=== PATIENT | female | born 1935 | race Caucasian/White ===

== ENCOUNTER 2018-03-06 11:22 | Inpatient (IN) | payer MEDICARE ==
[~2018-03-06] VITALS: Ht 167.6 cm; Wt 51.3 kg
[~2018-03-06 11:22] MED LIST: AMIODARONE HCL200 MG PO; ASPIRIN CHEW81 MG PO; CARBIDOPA-LEVO1 EAC9 PO; DIGOXIN125 MCG PO; ISOSORBIDE DINI30 MG PO; KLOR-CON M2020 MEQ PO; METOPROLOL TART50 MG PO; TORSEMIDE20 MG PO; WARFARIN SODIUM2 MG PO; ZOFRAN ODT4 MG PO
[2018-03-06] MEDS ORDERED: ALBUTEROL SULF 0.083% NEB SOLN 3 ML NEB NEB STA (12:06)
[2018-03-06] MEDS ORDERED: IPRATROPIUM BROMIDE 0.02% 2.5 ML NEB NEB STA (12:06)
[2018-03-06] MEDS ORDERED: ASPIRIN 81 MG CHEW TAB PO ONE ×2 (12:15→15:30)
--- NOTE | 2018-03-06 12:53 | Diagnostic Imaging Report ---
EXAMINATION: CHEST SINGLE (PORTABLE) INDICATION: Respiratory distress. COMPARISON: None FINDINGS: AP view TUBES and LINES: None. LUNGS: Lungs are well inflated. There are bibasilar atelectasis. Diffuse interstitial and alveolar opacities bilaterally. There is however more rounded appearance of the airspace opacities. Calcified granuloma in the left midlung. PLEURA: Small bilateral pleural effusions. HEART AND MEDIASTINUM: Cardiac size is moderately enlarged. There are atherosclerotic calcifications within the aorta. BONES AND SOFT TISSUES: No acute osseous lesion. Soft tissues are unremarkable. Surgical clips in the right upper arm, possibly related to vein harvesting. UPPER ABDOMEN: No free air under the diaphragm. There are cholecystectomy clips. IMPRESSION: Pulmonary edema with pleural effusion. However, there are rounded opacities in bilateral lungs that are more rounded than expected for pulmonary edema. Consider multifocal pneumonia or metastases. Signed by: Dr. Carlitos Galindo M.D. on 03/06/2018 12:50 PM
[2018-03-06] MEDS ORDERED: CIPROFLOXACIN 400 MG/D5W 200ML 200 ML IV ONE (13:30)
[2018-03-06] MEDS ORDERED: VANCOMYCIN 1GM/NS 250 ML 250 ML IV ONE (13:30)
--- NOTE | 2018-03-06 14:07 | Diagnostic Imaging Report ---
EXAM: Chest Ultrasound INDICATION: Respiratory distress, shortness of breath and history of pleural effusions \S\SOB and hx pleural effusions COMPARISON: AP chest 03/06/2018 TECHNIQUE: Transverse and longitudinal images of the chest were obtained. FINDINGS: Examination shows moderate bilateral pleural effusions with associated moderate compressive atelectasis of the lower lobes. IMPRESSION: 1. Moderate bilateral pleural effusions and associated moderate compressive atelectasis of the lower lobes. Signed by: Dr. Mino Jackson M.D. on 03/06/2018 2:04 PM
[2018-03-06 14:22] LABS: BASOPHILS # (AUTO) 0.1 (0.0-0.1); BASOPHILS % 0.8 % (0.0-1.0); EOSINOPHILS # (AUTO) 0.1 (0.0-0.4); EOSINOPHILS % 0.8 % (0.0-6.0); HEMATOCRIT 35.3 % (34.2-44.1); HEMOGLOBIN 11.3 g/dL (12.0-16.0); LYMPHOCYTES # (AUTO) 0.9 (1.0-3.2); LYMPHOCYTES % 11.5 % (18.0-39.1); MEAN CORPUSCULAR HEMOGLOBIN 31.2 pg (28-32); MEAN CORPUSCULAR VOLUME 97.5 fL (81-99); MONOCYTES # (AUTO) 0.9 (0.2-0.8); MONOCYTES % 11.2 % (4.4-11.3); NEUTROPHILS # (AUTO) 5.7 (2.1-6.9); NEUTROPHILS % 75.3 % (38.7-80.0); PLATELET COUNT 145 x10e3/uL (140-360); RED BLOOD COUNT 3.62 x10e6/uL (3.6-5.1); RED CELL DISTRIBUTION WIDTH 15.7 % (11.7-14.4)
[2018-03-06 14:31] LABS: CLARITY,URINE SL CLOUDY (CLEAR); COLOR,URINE YELLOW (YELLOW)
[2018-03-06 14:32] LABS: BILIRUBIN,URINE NEGATIVE (NEGATIVE); KETONES,URINE NEGATIVE (NEGATIVE); LEUKOCYTE ESTERASE ,URINE TRACE (NEGATIVE); NITRITE,URINE NEGATIVE (NEGATIVE); PROTEIN,URINE DIPSTICK 1+ (NEGATIVE); URINE UROBILINOGEN 0.2 mg/dL (0.2 - 1)
[2018-03-06 14:35] LABS: INR 1.11; PARTIAL THROMBOPLASTIN TIME 37.7 seconds (23.8-35.5); PROTHROMBIN TIME 15.3 seconds (11.9-14.5)
[2018-03-06 14:52] LABS: CREATINE KINASE MB 1.2 ng/mL (0-5.0)
[2018-03-06] MEDS ORDERED: FUROSEMIDE INJ 10 MG/ML 2 ML VIAL IV ONE (15:30)
[2018-03-06] MEDS ORDERED: ONDANSETRON HCL INJ 2 MG/ML VIAL IV PRN (15:30)
[2018-03-06] MEDS ORDERED: SODIUM CHLORIDE FLUSH 10 ML SYR INJ PRN (15:30)
[2018-03-06] MEDS ORDERED: DEXTROSE 50% SYRINGE 50 ML IV PRN (15:30)
[2018-03-06] MEDS: INSULIN REGULAR, HUMAN 100 UNIT/1 ML 3ML VIAL SQ SCH ×2 (16:30→21:00)
--- NOTE | 2018-03-06 17:37 | History and Physical ---
CHIEF COMPLAINT: Shortness of breath. HISTORY OF PRESENT ILLNESS: This is an 83-year-old woman with a history of pleural effusion and end-stage renal disease, who has had thoracenteses in the past, now developing worsening shortness of breath at [facility]. The patient had Lasix added a few days ago. She was allergic to Lasix. She had increased fluid removal during dialysis, but she continued to be short of breath. Her oxygen was increased from 2 liters [facility]. The patient was subsequently transferred to the hospital for management. Chest x-ray done here shows pulmonary edema with pleural effusion. There are also rounded opacities. Ultrasound performed of the chest showed moderate bilateral pleural effusions and associated moderate compressive atelectasis of the lower lobes. The patient was admitted for further evaluation and management. PAST MEDICAL HISTORY: End-stage renal disease on hemodialysis, acute respiratory failure, pulmonary edema, pleural effusions status post chest tube on more than 1 occasion, systolic congestive heart failure with left ventricular ejection fraction 35% to 40% in April 2017, bilateral pleural effusions, healthcare-associated pneumonia, atrial fibrillation, hyperlipidemia, hypertension, Parkinson disease, coronary artery disease status post coronary artery bypass grafting, DVT/PE, bright red blood per rectum/acute GI bleed, internal hemorrhoids, multiple colonic polyps in August 2016, patent foramen ovale/atrial septal defect on echocardiogram in August 2016, left sciatica, urinary tract infection, MRSA bacteremia, ASD shunt left to right, [id number] CO in April 2017, chronic angina. PAST SURGICAL HISTORY: Coronary artery bypass grafting, cholecystectomy, breast biopsy, bilateral chest tubes. ALLERGIES: PER ELECTRONIC MEDICAL RECORD. FAMILY HISTORY/SOCIAL HISTORY: No alcohol, illicits or cigarettes. The patient has a son. MEDICATIONS: Per electronic medical record. REVIEW OF SYSTEMS: Denies any dizziness or chest pain. Denies any fever, chills, sweats, nausea, vomiting, diarrhea. Denies any leg pain, back pain, vision changes. VITAL SIGNS: Have been reviewed. PHYSICAL EXAMINATION GENERAL: A tired-appearing woman resting in bed. HEENT: Anicteric. CARDIOVASCULAR: Normal S1 and S2. LUNGS: She has reduced breath sounds in bilateral bases of the lungs. She has fine crackles at the left lung base, but she definitely has reduced breath sounds at the bases. ABDOMEN: Soft, nontender, nondistended. EXTREMITIES: Trace edema. SKIN: Dry. PSYCHIATRIC: Flat affect. MUSCULOSKELETAL: Hemodialysis access. NEUROLOGIC: Alert, oriented times 3, moving all extremities. LABS: Reviewed. MEDICATIONS: Reviewed. ASSESSMENT AND PLAN: This is an 83-year-old woman. 1. Bilateral pleural effusions. 2. Pulmonary edema. 3. Acute exacerbation of systolic congestive heart failure, left ventricular ejection fraction 35% to 40% in April 2017, brain natriuretic peptide 3252 and pulmonary edema/pleural effusion. 4. Coronary artery disease with history of coronary artery bypass grafting. 5. Paroxysmal atrial fibrillation. 6. Hypertension. 7. Hyperlipidemia. 8. History of atrial septal defect with left to right shunt. 9. Chronic angina. 10. Normocytic anemia. 11. Asymptomatic urinary tract infection. 12. Parkinson disease. PLAN 1. Diurese the patient as above. The patient needs fluid removed by hemodialysis. Nephrology consultation. 2. Pulmonary consultation. Ultrasound only shows moderate effusion. We will continue with aggressive fluid removal during dialysis. Ultimately, the patient will require thoracentesis. Pleurodesis would be beneficial. Will await CT scan imaging of the chest. 3. Continue carbidopa and levodopa. 4. INR is subtherapeutic. Will continue Coumadin as it is unlikely the patient will require a thoracentesis at this time. 5. Continue blood pressure control. 6. Check digoxin level. 7. Check INR in the morning. 8. Continue amiodarone. 9. Will add Pepcid while the patient is on anticoagulation. 10. Disposition: Monitor closely. Follow I's and O's. Nephrology consultation. Pulmonary consultation. Job#: [id number]
[2018-03-06] MEDS: ONDANSETRON HCL 4 MG ORAL DISINTEGRATING TAB PO SCH (18:00)
[2018-03-06 20:00] VITALS: BP 107/53
--- NOTE | 2018-03-06 20:04 | Consultation ---
DATE OF CONSULTATION: March 06, 2018 HISTORY OF PRESENT ILLNESS: Ms. Yuli Valladares is known to me, 83-year-old female with history of recurrent pneumonia, pleural effusion. Last dialyzed yesterday, presented today with cough and shortness of breath. She is found to have multifocal pneumonia and currently admitted. White count is 7.58, hemoglobin 11.3. She is currently lying supine, on oxygen nasal cannula. Denies any nausea, vomiting, or shortness of breath. PHYSICAL EXAMINATION: VITAL SIGNS: Blood pressure is 130/60. Pulse rate 80. HEENT: Head and neck: Cornea clear. Oral mucosa dry. Neck veins flat. LUNGS: Bibasilar rales. HEART: S1, S2 audible. ABDOMEN: Otherwise soft, nontender. EXTREMITIES: Lower extremities, no edema. CURRENT MEDICATIONS: Patient received 1 dose of Cipro, 1 dose of vancomycin. She is on amiodarone 200 mg daily, albuterol and Atrovent nebulizers, aspirin 81 mg to chew. She is on carbidopa/levodopa once a day. She is on digoxin 0.125 mg daily, I am going to absolutely discontinue this medication. She received 1 dose of Lasix but she is anuric, metoprolol 50 mg daily, ondansetron p.r.n. Apparently, the MAR says she is on potassium chloride 20 mEq daily. I asked the patient and she knows very well that she potassium chloride, so I am going to stop that as well. She is on torsemide 20 mg daily, which I will stop. She is on Coumadin 2 mg p.o. daily. FAMILY HISTORY: Significant for hypertension. IMPRESSION AND PLAN: 1. Underlying congestive heart failure, pneumonia. B-type natriuretic peptide is elevated, but she is relatively asymptomatic. Plan on hemodialysis. Will consult infectious disease for pulmonary care. She has had recurrent pneumonias. 2. Pleural effusion, status post thoracentesis in the past. 3. History of Parkinson's, hypertension, anemia, chronic kidney disease, secondary hyperparathyroidism. Will resume phosphorus binders. Will obtain Mircera dose from dialysis unit and re-dose if needed. Dialysis nurse called. Please see orders. Thank you. Job#: [id number]
[2018-03-06 20:22] VITALS: BP 107/53
--- NOTE | 2018-03-06 20:38 | Consultation ---
DATE OF CONSULTATION: March 06, 2018 PULMONARY CONSULTATION REASON FOR CONSULTATION: Pleural effusion, shortness of breath. HISTORY OF PRESENT ILLNESS: Ms. Valladares is an 83-year-old female who has a history of an end-stage renal disease. She was recently admitted to [facility] with pneumonia. She has recurrent bilateral pleural effusion, previous one done at [facility] was exudative. She is complaining of shortness of breath. She reports that it started a few days ago and progressively got worse. Ultrasound was done in the emergency room which showed bilateral pleural effusion. REVIEW OF SYSTEMS GENERAL: Denies any fever or chills. HEAD: Denies any head trauma. ENT: Denies any earache. CVS: Denies any chest pain. RESPIRATORY: Shortness of breath. GI: Denies any nausea or vomiting. Rest of the review systems is negative except as in history of present illness. PAST MEDICAL HISTORY: End-stage renal disease on hemodialysis, pulmonary edema, history of pleural effusion, hypertension, hyperlipidemia, atrial fibrillation, coronary artery disease, history of bypass surgery. PAST SURGICAL HISTORY: CABG, cholecystectomy, breast biopsy. FAMILY AND SOCIAL HISTORY: She does not drink, does not smoke. PHYSICAL EXAMINATION VITAL SIGNS: Temperature 98.2, pulse of 84, blood pressure 116/58, respiratory rate of 18, O2 sat 100%. HEENT: Head atraumatic, normocephalic. NECK: Supple. CHEST: Markedly reduced air entry bilaterally on the bases. HEART: S1, S2 audible. ABDOMEN: Soft, nontender, nondistended. EXTREMITIES: No clubbing, cyanosis. Patient has pedal edema. NEUROLOGICAL: She is awake and alert. No focal neurologic deficits. LABS: White count of 57,000, hemoglobin 11.3, platelets 145,000. BNP 3252.7. Chest x-ray is showing pulmonary edema with pleural effusion. Chest ultrasound is showing effusion. ASSESSMENT: Ms. Valladares is an 83-year-old female with recurrent pleural effusions and has previous pneumonia. Currently has pleural effusion. CURRENT PROBLEMS 1. Possible pneumonia. 2. Pleural effusion. 3. Hypertension. 4. End-stage renal disease. 5. Diabetes. PLAN 1. I agree with starting the patient on IV antibiotics per ID recommendation. 2. I will request thoracentesis. Her INR is 1.1. She will need thoracentesis for bilateral pleural effusions. 3. End-stage renal disease, on hemodialysis per nephrology recommendation. 4. Oxygen as needed to keep the O2 sat more than or equal to 92%. 5. Chronic systolic heart failure. EF was 35% to 40% in April 2017. Likely reason for her recurrent pleural effusions is heart failure. Thank you for this consult. Job#: [id number] VIKTOR
[2018-03-06 21:57] LABS: CREATINE KINASE MB 1.1 ng/mL (0-5.0)
[2018-03-06] MEDS: BENZONATATE 100 MG CAP PO PRN (23:06)
[2018-03-06] MEDS: ALPRAZOLAM 0.25 MG TAB PO PRN (23:06)
[2018-03-07] VITALS (8 sets, daily range): BP systolic 114–139; BP diastolic 51–63
[2018-03-07] MEDS: ONDANSETRON HCL 4 MG ORAL DISINTEGRATING TAB PO SCH ×4 (05:43→18:00)
[2018-03-07 05:53] LABS: BASOPHILS # (AUTO) 0.1 (0.0-0.1); BASOPHILS % 0.7 % (0.0-1.0); EOSINOPHILS # (AUTO) 0.1 (0.0-0.4); EOSINOPHILS % 1.9 % (0.0-6.0); LYMPHOCYTES # (AUTO) 1.4 (1.0-3.2); LYMPHOCYTES % 20.7 % (18.0-39.1); MEAN CORPUSCULAR HEMOGLOBIN 31.3 pg (28-32); MEAN CORPUSCULAR HGB CONC 32.4 g/dL (31-35); MEAN CORPUSCULAR VOLUME 96.9 fL (81-99); MONOCYTES # (AUTO) 0.9 (0.2-0.8); MONOCYTES % 13.7 % (4.4-11.3); NEUTROPHILS # (AUTO) 4.3 (2.1-6.9); NEUTROPHILS % 62.7 % (38.7-80.0); PLATELET COUNT 154 x10e3/uL (140-360); RED BLOOD COUNT 3.51 x10e6/uL (3.6-5.1); RED CELL DISTRIBUTION WIDTH 15.4 % (11.7-14.4)
[2018-03-07 06:10] LABS: INR 0.96; PROTHROMBIN TIME 13.7 seconds (11.9-14.5)
[2018-03-07 06:15] LABS: ALANINE AMINOTRANSFERASE < 6 IU/L (0-55); ALBUMIN/GLOBULIN RATIO 0.9 (0.8-2.0); ALKALINE PHOSPHATASE 89 IU/L (40-150); ANION GAP 17.1 mmol/L (8-16); BLOOD UREA NITROGEN 47 mg/dL (7-26); BUN/CREATININE RATIO 14 (6-25); CALCIUM 9.9 mg/dL (8.4-10.2); CARBON DIOXIDE 27 mmol/L (22-29); CHLORIDE 100 mmol/L (98-107); CREATINE KINASE 27 IU/L (29-168); CREATININE, SERUM 3.44 mg/dL (0.57-1.11); EST GLOMERULAR FILTRATION RATE 13 ML/MIN (60-); GLUCOSE 98 mg/dL (74-118); POTASSIUM 4.1 mmol/L (3.5-5.1); SODIUM 140 mmol/L (136-145)
--- NOTE | 2018-03-07 06:37 | Diagnostic Imaging Report ---
EXAM: CHEST SINGLE (PORTABLE), AP 1 view INDICATION: Respiratory distress COMPARISON: AP view of the chest March 06, 2018 FINDINGS: LINES/TUBES: None LUNGS: Bilateral pulmonary edema and bibasilar atelectasis versus consolidations. Rounded opacities seen on prior x-ray are less appreciated on today's exam. PLEURA: Small to moderate bilateral pleural effusions. HEART AND MEDIASTINUM: Stable appearance. BONES AND SOFT TISSUES: No acute findings. IMPRESSION: Findings suggest fluid overload/congestive heart failure. Superimposed pneumonia cannot be excluded. Signed by: Dr. Leydi Corona M.D. on 03/07/2018 6:34 AM
[2018-03-07] MEDS: INSULIN REGULAR, HUMAN 100 UNIT/1 ML 3ML VIAL SQ SCH ×4 (07:30→21:00)
[2018-03-07] MEDS: ISOSORBIDE DINITRATE 20 MG TAB PO SCH (09:00)
[2018-03-07] MEDS ORDERED: TORSEMIDE 10 MG TAB PO SCH (09:00)
[2018-03-07] MEDS ORDERED: CARBIDOPA PO SCH (09:00)
[2018-03-07] MEDS: METOPROLOL TARTRATE 50 MG TAB PO SCH (09:00)
[2018-03-07] MEDS ORDERED: NON-FORMULARY MEDICATION (Torsemide 20 MG) PO SCH (09:00)
[2018-03-07] MEDS ORDERED: POTASSIUM CHLORIDE 20 MEQ TAB CR PO SCH (09:00)
[2018-03-07] MEDS ORDERED: LEVODOPA PO SCH (09:00)
[2018-03-07] MEDS ORDERED: NON-FORMULARY MEDICATION (Isosorbide Dinitrate 30 MG) PO SCH (09:00)
[2018-03-07] MEDS ORDERED: DIGOXIN 0.125 MG TAB PO SCH (09:00)
[2018-03-07] MEDS: AMIODARONE HCL 200 MG TAB PO SCH (09:00)
[2018-03-07] MEDS ORDERED: SODIUM CHLORIDE 0.9% 1000ML 2,000 ML IV PRN (10:00)
[2018-03-07] MEDS ORDERED: VANCOMYCIN 750MG/NS 150ML IVPB 150 ML IV SCH (12:30)
[2018-03-07] MEDS: ALBUTEROL/IPRATROPIUM 3 ML NEB NEB SCH ×2 (13:00→19:18)
--- NOTE | 2018-03-07 13:30 | Consultation ---
DATE OF CONSULTATION: March 06, 2018 INFECTIOUS DISEASE CONSULTATION REASON FOR CONSULTATION: Pneumonia. Thank you so much for asking me to see this patient. The patient was seen on March 06. This is dictated the next day. Please refer to the notes in the chart. HISTORY OF PRESENT ILLNESS: Ms. Yuli Valladares is known to me from before, an 83-year-old white female with history of recurrent pneumonia, history of pleural effusion, history of end-stage renal disease on hemodialysis. The patient comes in with fever and chills. The patient apparently thought to be sick before she came here for a few days. She received Cipro and 1 dose of vancomycin as an outpatient but was without any improvement. The patient came to the hospital because she was short of breath. Patient is being admitted. I did see the patient in the emergency room. The patient has history of end-stage renal disease, had a thoracocentesis in the past. She was in [place] [facility], comes in with shortness of breath and cough. The patient apparently got some Lasix a few days ago, and Cipro and vancomycin were also given a few days ago without any improvement. PAST MEDICAL HISTORY: This patient has the following medical problems. End-stage renal disease on hemodialysis, pulmonary edema before, pleural effusion status post chest tube several occasions, congestive heart failure systolic, ejection fraction of 35% to 40% in April 2017, bilateral pleural effusion, healthcare-associated pneumonia, atrial fibrillation, hyperlipidemia, hypertension, Parkinson disease, coronary artery disease status post CABG, DVT, PE before, bright red blood in the rectum, GI bleed before, internal hemorrhoid, multiple colonic polyps in August 2016, history of foramen ovale/atrial septal defect on echocardiogram in August 2016, left sciatica, UTI before, MRSA bacteremia, ASD. She also had a shunt left to right and [id number] myocardial infarction in 2017, angina. Status post CABG, status post cholecystectomy, bilateral chest tube before, and breast biopsy. PAST SURGICAL HISTORY: As above. ALLERGIES: MORPHINE, FUROSEMIDE, CEPHALEXIN, PENICILLIN. SOCIAL HISTORY: There is no smoking, drug abuse, alcohol abuse. FAMILY HISTORY: Hypertension. REVIEW OF SYSTEMS HEENT: There is no headache or visual changes, hearing changes. GI: There is no nausea or vomiting or diarrhea. CARDIAC: There is no arrhythmia. NEURO: No seizure activity. SKIN: There is no other rash. JOINTS: There is no erythema. OTHER REVIEW OF SYSTEMS: Unremarkable. PHYSICAL EXAMINATION GENERAL: She is alert, oriented, does not seem to be in acute distress, a little bit short of breath. VITAL SIGNS: Stable. Afebrile at the present time. Temperature of 96.5, heart rate of 75, respiration 18. HEENT: She does not appear icteric. Normocephalic. NECK: Supple. CHEST: A few crackles bilaterally. HEART: S1 and S2. No S3 or S4, no murmur. ABDOMEN: Soft. Bowel sounds present. No tenderness. EXTREMITIES: No edema. CHEST X-RAY: Showed bilateral infiltrate. IMPRESSION: Cough, shortness of breath, probably fluid overload with superimposed pneumonia. Concerned about healthcare-associated pneumonia. Will put her on vancomycin and cefepime. Agree with diuresis. Agree with maximizing her cardiac and fluid status. Patient is up to date on her vaccinations, pneumonia and flu according to her. Will follow with you. Thank you for asking me to see this patient. Job#: [id number] CRYSTAL
[2018-03-07] MEDS ORDERED: WARFARIN SOD 2 MG TAB PO SCH (17:00)
[2018-03-07] MEDS: CARBIDOPA/LEVODOPA 10/100 TAB PO SCH (17:20)
[2018-03-07] MEDS: ALPRAZOLAM 0.25 MG TAB PO PRN (22:06)
[2018-03-08] VITALS (7 sets, daily range): BP systolic 106–132; BP diastolic 52–60
[2018-03-08] MEDS: ALBUTEROL/IPRATROPIUM 3 ML NEB NEB SCH ×4 (01:20→19:25)
[2018-03-08] MEDS: ONDANSETRON HCL 4 MG ORAL DISINTEGRATING TAB PO SCH ×4 (06:00→19:18)
[2018-03-08] MEDS: INSULIN REGULAR, HUMAN 100 UNIT/1 ML 3ML VIAL SQ SCH ×4 (07:30→20:13)
[2018-03-08] MEDS: METOPROLOL TARTRATE 50 MG TAB PO SCH (09:00)
[2018-03-08] MEDS: CARBIDOPA/LEVODOPA 10/100 TAB PO SCH (09:00)
[2018-03-08] MEDS: ISOSORBIDE DINITRATE 20 MG TAB PO SCH (09:00)
[2018-03-08] MEDS: CEFEPIME HCL 1 GM VIAL IV SCH (09:18)
[2018-03-08] MEDS: AMIODARONE HCL 200 MG TAB PO SCH (13:00)
--- NOTE | 2018-03-08 14:19 | Diagnostic Imaging Report ---
PROCEDURE: ULTRASOUND GUIDED THORACENTESIS COMPARISON: [facility], DX, CHEST SINGLE (PORTABLE), 03/07/2018, 6:10. INDICATIONS: Bilateral pleural effusions FINDINGS: After informed consent was obtained, the patient was placed in the sitting position and preliminary ultrasound of the posterior chest identified a safe route into the right pleural effusion. The overlying skin was prepped and draped in usual sterile fashion. Lidocaine 1% was used for local anesthesia. Under ultrasound guidance, a 5 Lao centesis needle was advanced into the pleural fluid and 900 cc were aspirated. The patient tolerated the procedure well and there were no immediate post-procedural complications. A post-thoracentesis chest radiograph will be obtained. CONCLUSION: Ultrasound-guided right thoracentesis with removal of 900 cc of blood-tinged effusion. Jovani Varma D.O. Dictated by: Jovani Varma D.O. on 03/08/2018 at 14:26 Electronically approved by: Jovani Varma D.O. on 03/08/2018 at 14:26
--- NOTE | 2018-03-08 14:32 | Diagnostic Imaging Report ---
EXAM: CHEST XRAY POST PROCEDURE, PA and lateral DATE: 03/08/2018 1:55 PM Time stamp on exam: 1:54 PM INDICATION: Post thoracentesis chest x-ray COMPARISON: 03/07/2018 FINDINGS: LINES/TUBES: Sternotomy wire sutures. LUNGS: Mild pulmonary vascular congestion. Bibasilar atelectasis. PLEURA: Tiny right apical pneumothorax. Size of the right pleural effusion is diminished compared to the recent study. Left pleural effusion again noted. HEART AND MEDIASTINUM: Heart is enlarged. BONES AND SOFT TISSUES: No acute findings. IMPRESSION: Tiny right apical pneumothorax post thoracentesis. Signed by: Dr. Jovani Varma DO on 03/08/2018 2:29 PM
[2018-03-08 15:10] LABS: BODY FLUID COLOR STRAW; BODY FLUID TYPE PLEURAL
[2018-03-08 15:11] LABS: BODY FLUID APPEARANCE CLOUDY
[2018-03-08 15:49] LABS: RBC,BODY FLUID 539 cells/uL; WBC,BODY FLUID 91 cells/uL
[2018-03-08 15:55] LABS: LYMPHOCYTES,BODY FLUID 60 %; MONO/MACROPHG,BODY FLUID 19 %; OTHER CELLS,BODY FLUID 21 %
[2018-03-08] MEDS: ACETAMINOPHEN 325 MG TAB PO PRN ×2 (16:00→20:06)
[2018-03-08] MEDS: PRAVASTATIN 20 MG TAB PO SCH (20:06)
[2018-03-08] MEDS: ALPRAZOLAM 0.25 MG TAB PO PRN (20:06)
[2018-03-08] MEDS: DOCUSATE SODIUM 100 MG CAP PO SCH (20:06)
[2018-03-08] MEDS: BENZONATATE 100 MG CAP PO PRN (20:14)
[2018-03-09] VITALS (7 sets, daily range): BP systolic 94–127; BP diastolic 51–62
[2018-03-09] MEDS: ALBUTEROL/IPRATROPIUM 3 ML NEB NEB SCH ×4 (01:05→19:30)
[2018-03-09] MEDS: ONDANSETRON HCL 4 MG ORAL DISINTEGRATING TAB PO SCH ×5 (05:04→23:29)
[2018-03-09] MEDS: INSULIN REGULAR, HUMAN 100 UNIT/1 ML 3ML VIAL SQ SCH ×4 (07:30→21:00)
[2018-03-09] MEDS: ISOSORBIDE DINITRATE 20 MG TAB PO SCH (08:24)
[2018-03-09] MEDS: DOCUSATE SODIUM 100 MG CAP PO SCH ×2 (08:24→20:19)
[2018-03-09] MEDS: PANTOPRAZOLE SOD 40 MG TABEC PO SCH (08:24)
[2018-03-09] MEDS: SEVELAMER CARBONATE 800 MG TAB PO SCH ×3 (08:24→16:49)
[2018-03-09] MEDS: AMIODARONE HCL 200 MG TAB PO SCH (08:24)
[2018-03-09] MEDS: LORATADINE 10 MG TAB PO SCH (08:24)
[2018-03-09] MEDS: SENNOSIDES 8.6 MG TAB PO SCH (08:24)
[2018-03-09] MEDS: CARBIDOPA/LEVODOPA 10/100 TAB PO SCH (08:24)
[2018-03-09] MEDS: CEFEPIME HCL 1 GM VIAL IV SCH (08:24)
[2018-03-09] MEDS: METOPROLOL TARTRATE 50 MG TAB PO SCH (09:00)
[2018-03-09] MEDS: FLUTICASONE PROPIONATE NASAL SPRAY NS SCH (09:00)
--- NOTE | 2018-03-09 09:35 | Diagnostic Imaging Report ---
EXAM: XR CHEST 1 VIEW DATE: 03/09/2018 8:56 AM INDICATION: Effusion COMPARISON: 03/08/2018, with no report available. FINDINGS: Lines and Tubes: None Heart and Mediastinum: Heart mildly prominent. Sternotomy wires noted. Lungs and Pleura: Interstitial prominence, mild scattered airspace opacities, and small bilateral pleural effusions. Nodular density left midlung. Questionable previous tiny right apical pneumothorax not distinctly seen, possibly due to differences in semiupright positioning. Bones and Soft Tissues: Numerous clips overlie right arm. IMPRESSION: 1. Volume overload with small bilateral pleural effusions. Superimposed infectious process possible. 2. Nodular density left midlung likely infectious. Close radiographic follow-up recommended. Signed by: Dr. Moshe Hayes MD on 03/09/2018 9:32 AM
[2018-03-09] MEDS: ACETAMINOPHEN 325 MG TAB PO PRN (11:27)
[2018-03-09] MEDS: PRAVASTATIN 20 MG TAB PO SCH (20:19)
[2018-03-09] MEDS: ALPRAZOLAM 0.25 MG TAB PO PRN (20:25)
[2018-03-10] VITALS (7 sets, daily range): BP systolic 113–136; BP diastolic 55–63
--- NOTE | 2018-03-10 00:18 | Progress Note ---
DATE: March 07, 2018 TIME: 7:15 a.m. OVERNIGHT: No events. REVIEW OF SYSTEMS: Denies any dizziness or chest pain. Denies any fever, chills, sweats, nausea, vomiting, diarrhea, leg pain, back pain, or headache. OBJECTIVE VITAL SIGNS: Reviewed. GENERAL: Tired-appearing woman, resting in bed. HEENT: Anicteric. CARDIOVASCULAR: Normal S1 and S2. LUNGS: She has reduced breath sounds in bilateral bases. She has fine crackles at the base, right more than left. She has reduced breath sounds on the right lung more than left. ABDOMEN: Soft and nontender. EXTREMITIES: Trace edema. SKIN: Dry. PSYCHIATRIC: Flat affect. NEUROLOGIC: Alert and appropriate. MUSCULOSKELETAL: Hemodialysis access. LABS: Reviewed. MEDICATIONS: Reviewed. ASSESSMENT AND PLAN: This is an 83-year-old woman with: 1. Bilateral pleural effusions. 2. Pulmonary edema. 3. Acute exacerbation of systolic congestive heart failure, left ventricular ejection fraction 35%-40%. 4. Coronary artery disease with history of bypass. 5. Paroxysmal atrial fibrillation. 6. Hypertension. 7. Hyperlipidemia. 8. History of atrial septal defect and left to right shunt. 9. Chronic angina. 10. Normocytic anemia. 11. Asymptomatic urinary tract infection. 12. Parkinson's disease. PLAN 1. Will need thoracentesis. 2. Continue removal of fluid by dialysis. 3. Pulmonary has been consulted. 4. Digoxin level is normal. 5. Follow up closely. Job#: [id number] MAICOL
--- NOTE | 2018-03-10 00:19 | Progress Note ---
DATE: March 09, 2018 TIME: 12:45 p.m. OVERNIGHT: Patient had thoracentesis with 900 mL removed from the right lung. REVIEW OF SYSTEMS: Denies any dizziness or chest pain. Denies any fever, chills, sweats, nausea, vomiting, diarrhea, headache, leg pain, or back pain. OBJECTIVE VITAL SIGNS: Reviewed. GENERAL: Tired-appearing woman, resting in bed. HEENT: Anicteric. CARDIOVASCULAR: Normal S1 and S2. LUNGS: She has reduced breath sounds, more on the right compared to the left. She has reduced breath sounds. ABDOMEN: Soft and nontender. EXTREMITIES: Trace edema. SKIN: Dry. PSYCHIATRIC: Flat affect. MUSCULOSKELETAL: Hemodialysis access. LABS: Reviewed. MEDICATIONS: Reviewed. ASSESSMENT AND PLAN: This is an 83-year-old woman with: 1. Bilateral pleural effusions/pulmonary edema. 2. Acute exacerbation of systolic congestive heart failure, left ventricular ejection fraction 35%-40%. 3. Coronary artery disease with history of bypass. 4. Paroxysmal atrial fibrillation. 5. Hypertension. 6. Hyperlipidemia. 7. Chronic angina. 8. Normocytic anemia. 9. Parkinson's disease. 10. Asymptomatic urinary tract infection. 11. Small right pneumothorax post thoracentesis. PLAN 1. Continue fluid removal by dialysis. 2. Patient is status post thoracentesis with 900 mL removed from the right lung. 3. Continue medication regimen. 4. Limit salt and limit fluids. 5. Continue physical therapy. 6. Continue to observe followed by imaging tomorrow. 7. Discharge planning back to [facility] facility soon. Job#: [id number] MAICOL
--- NOTE | 2018-03-10 00:28 | Progress Note ---
DATE: March 08, 2018 TIME: 8:15 a.m. OVERNIGHT: No events reviewed. REVIEW OF SYSTEMS: Denies any dizziness, chest pain, fever, chills, nausea, vomiting, or diarrhea. She does have shortness of breath. OBJECTIVE VITAL SIGNS: Reviewed. GENERAL: Tired-appearing woman, resting in bed. HEENT: Anicteric. CARDIOVASCULAR: Normal S1, S2. LUNGS: She has reduced breath sounds, right worse than left base. ABDOMEN: Soft, nontender. EXTREMITIES: She has trace edema. SKIN: Dry. PSYCHIATRIC: Flat affect. NEUROLOGICAL: Alert and oriented times 3. MUSCULOSKELETAL: She has hemodialysis access. LABS: Reviewed. MEDICATIONS: Reviewed. ASSESSMENT: This is an 83-year-old woman with; 1. Bilateral pleural effusion. 2. Pulmonary edema. 3. Acute exacerbation of systolic congestive heart failure, left ventricular ejection fraction 35% to 40%. 4. Coronary artery disease with history of bypass. 5. Paroxysmal atrial fibrillation. 6. Hypertension. 7. Hyperlipidemia. 8. Chronic angina. 9. Asymptomatic urinary tract infection. 10. Parkinson's disease. PLAN 1. Pleural thoracentesis. 2. Continue blood pressure control. 3. The patient is currently comfortable. 4. Continue follow INR. 5. Hold Xarelto. Job#: [id number] RUBY
[2018-03-10] MEDS: ALBUTEROL/IPRATROPIUM 3 ML NEB NEB SCH ×4 (02:10→19:36)
[2018-03-10] MEDS: ONDANSETRON HCL 4 MG ORAL DISINTEGRATING TAB PO SCH ×3 (05:41→16:51)
[2018-03-10] MEDS: INSULIN REGULAR, HUMAN 100 UNIT/1 ML 3ML VIAL SQ SCH ×4 (07:30→20:13)
[2018-03-10] MEDS: PANTOPRAZOLE SOD 40 MG TABEC PO SCH (08:40)
[2018-03-10] MEDS: DOCUSATE SODIUM 100 MG CAP PO SCH ×2 (08:41→20:11)
[2018-03-10] MEDS: ISOSORBIDE DINITRATE 20 MG TAB PO SCH (08:41)
[2018-03-10] MEDS: AMIODARONE HCL 200 MG TAB PO SCH (08:41)
[2018-03-10] MEDS: SEVELAMER CARBONATE 800 MG TAB PO SCH ×3 (08:41→16:51)
[2018-03-10] MEDS: LORATADINE 10 MG TAB PO SCH (08:41)
[2018-03-10] MEDS: CEFEPIME HCL 1 GM VIAL IV SCH (08:41)
[2018-03-10] MEDS: FLUTICASONE PROPIONATE NASAL SPRAY NS SCH (08:41)
[2018-03-10] MEDS: METOPROLOL TARTRATE 50 MG TAB PO SCH (08:42)
[2018-03-10] MEDS: SENNOSIDES 8.6 MG TAB PO SCH (08:42)
[2018-03-10] MEDS: CARBIDOPA/LEVODOPA 10/100 TAB PO SCH (08:42)
--- NOTE | 2018-03-10 20:10 | Progress Note ---
DATE: March 10, 2018 TIME: 1750 OVERNIGHT: No acute events. REVIEW OF SYSTEMS: Patient denies shortness of breath, chest pain, or dizziness. Additionally, denies any fever, chills, sweats, nausea, vomiting, diarrhea, headache, leg pain, or back pain. Reports intermittent nonproductive, nonpainful cough. OBJECTIVE VITAL SIGNS: T 97.3, P 75, R 20, BP 113/55, and SpO2 of 100% on 3 liters NC. GENERAL APPEARANCE: This is very frail elderly woman, resting in bed. HEENT: Normocephalic. Poor dentition with moist oral mucosa intact. Nares patent. NECK: No JVD with midline trachea. CV: S1 and S2 auscultated. Distant heart tones. No extra cardiac sounds appreciated. LUNGS: Diminished in all elizondo. Excursion limited during this exam. ABDOMEN: Soft, nontender, and nondistended. EXTREMITIES: Trace PT edema bilaterally. SKIN: Dry. PSYCHIATRIC: Flat affect. NEUROLOGICAL: A and O x3. MUSCULOSKELETAL: HD access noted. LABS: POC is reviewed. MEDICATIONS: Renvela 800 mg p.o. t.i.d. with meals, q.6 hours DuoNebs, p.o. daily Senokot, Sinemet 10/100 one p.o. daily, Lopressor 50 p.o. daily, Flonase q.a.m., q.12 Colace, daily Claritin, daily 1 g cefepime, daily Isordil 30 mg, amiodarone daily 200 mg, a.c. breakfast 40 mg Protonix, p.r.n. Xanax, p.r.n. Tylenol, b.i.d. p.r.n. Tessalon Perles, sliding scale regular insulin and scheduled q.6 hour 8 mg Zofran, 3 times a week vancomycin after dialysis, and HD medications. ASSESSMENT AND PLAN: This is an 83-year-old woman with 1. Bilateral pleural effusions and pulmonary edema. Pulmonology following. No review indicates pleurodesis discussed with the patient as well this day. 2. Acute exacerbation of systolic congestive heart failure, left ventricular ejection fraction 35% to 40%. Limit fluids and HD dialysis. 3. Coronary artery disease with bypass. 4. Proximal atrial fibrillation. Continue amiodarone. 5. Hypertension. Continue to monitor. 6. Hyperlipidemia. Follow values in a.m. 7. Chronic angina. 8. Normocytic anemia. Follow counts. 9. Parkinson's disease, Sinemet. 10. Asymptomatic urinary tract infection. AV access above. 11. Small right pneumothorax post thoracentesis on March 08. 12. Prophylaxis. As above. DISPOSITION: Continue HD, meds as indicated, sodium and fluid restriction, physical therapy. Possible pulmonary intervention and initiate discharge planning back to [facility]. Dictated by: Nafisa Xiao NP Job#: [id number] HAYLEY
[2018-03-10] MEDS: PRAVASTATIN 20 MG TAB PO SCH (20:11)
[2018-03-10] MEDS: ALPRAZOLAM 0.25 MG TAB PO PRN (20:12)
[2018-03-10] MEDS: BENZONATATE 100 MG CAP PO PRN (20:12)
[2018-03-11] VITALS (8 sets, daily range): BP systolic 98–140; BP diastolic 50–86
[2018-03-11] MEDS: ALBUTEROL/IPRATROPIUM 3 ML NEB NEB SCH ×3 (01:38→13:45)
[2018-03-11] MEDS ORDERED: LORATADINE10 MG PO (05:25)
[2018-03-11] MEDS ORDERED: TESSALON PERLE100 MG PO (05:25)
[2018-03-11] MEDS ORDERED: PRAVASTATIN SOD20 MG PO (05:25)
[2018-03-11] MEDS ORDERED: RENVELA800 MG PO (05:25)
[2018-03-11] MEDS: ONDANSETRON HCL 4 MG ORAL DISINTEGRATING TAB PO SCH ×5 (05:44→23:40)
[2018-03-11 07:01] LABS: ANION GAP 15.2 mmol/L (8-16); CHOL/HDL RATIO 2.5 (3.0-3.6); CREATININE, SERUM 3.54 mg/dL (0.57-1.11); POTASSIUM 4.2 mmol/L (3.5-5.1)
--- NOTE | 2018-03-11 07:29 | Diagnostic Imaging Report ---
PROCEDURE: X-RAY CHEST, TWO VIEWS COMPARISON: 03/08/2018, 03/09/2018. INDICATIONS: FLUID IN LUNGS FINDINGS: The lungs remain well-inflated. Small bilateral pleural effusions with lower lobe opacity, likely atelectasis. Cardiomediastinal contour is unchanged with prominence of the pulmonary interstitium. Atherosclerotic calcification of the aorta. No acute osseous abnormalities. Multiple surgical clips project over the soft tissues of the right upper arm. CONCLUSION: Stable cardiomegaly, interstitial pulmonary edema and small bilateral pleural effusions relative to 03/09/2018. Dictated by: Alphonso Crabtree M.D. on 03/11/2018 at 7:37 Electronically approved by: Alphonso Crabtree M.D. on 03/11/2018 at 7:37
[2018-03-11] MEDS: INSULIN REGULAR, HUMAN 100 UNIT/1 ML 3ML VIAL SQ SCH ×4 (07:30→20:52)
[2018-03-11] MEDS: CARBIDOPA/LEVODOPA 10/100 TAB PO SCH (10:01)
[2018-03-11] MEDS: LORATADINE 10 MG TAB PO SCH (10:01)
[2018-03-11] MEDS: DOCUSATE SODIUM 100 MG CAP PO SCH ×2 (10:01→20:34)
[2018-03-11] MEDS: FLUTICASONE PROPIONATE NASAL SPRAY NS SCH (10:01)
[2018-03-11] MEDS: SENNOSIDES 8.6 MG TAB PO SCH (10:01)
[2018-03-11] MEDS: PANTOPRAZOLE SOD 40 MG TABEC PO SCH (10:01)
[2018-03-11] MEDS: CEFEPIME HCL 1 GM VIAL IV SCH (10:01)
[2018-03-11] MEDS: SEVELAMER CARBONATE 800 MG TAB PO SCH ×3 (10:01→17:43)
--- NOTE | 2018-03-11 11:53 | Progress Note ---
DATE: March 11, 2018 TIME: 8:14 a.m. OVERNIGHT: No events. REVIEW OF SYSTEMS: Denies any dizziness or chest pain. PHYSICAL EXAMINATION VITAL SIGNS: Reviewed. GENERAL: A tired-appearing woman resting in bed. HEENT: Anicteric. CARDIOVASCULAR: Normal S1 and S2. LUNGS: She has reduced breath sounds, more reduced on the left. ABDOMEN: Soft, nontender and nondistended. EXTREMITIES: She has trace edema or calf tenderness. NEUROLOGICAL: Alert and oriented times 3. Moving all extremities. SKIN: Dry. PSYCHIATRIC: Normal affect. LABS: Reviewed. MEDICATIONS: Reviewed. ASSESSMENT: An 83-year-old woman with: 1. Bilateral pleural effusions/pulmonary edema: She is status post right thoracentesis. 2. Acute exacerbation of systolic congestive heart failure: Left ventricular ejection fraction 35% to 40%. 3. Coronary artery disease: History of bypass. 4. Paroxysmal atrial fibrillation. 5. Hypertension. 6. Hyperlipidemia. 7. Chronic angina. 8. Normocytic anemia. 9. Parkinson disease. 10. Asymptomatic urinary tract infection. 11. Small right pneumothorax, post thoracentesis. PLAN 1. There was 900 mL of fluid removed from the right lung. 2. Possible procedure today. 3. Limit salt and fluid intake. 4. Continue physical therapy. 5. Discharge planning. Job#: [id number] TIFFANI
[2018-03-11] MEDS: AMIODARONE HCL 200 MG TAB PO SCH (17:43)
[2018-03-11] MEDS ORDERED: ALPRAZOLAM 0.25 MG TAB PO ONE (17:50)
[2018-03-11] MEDS: ISOSORBIDE DINITRATE 20 MG TAB PO SCH (18:24)
[2018-03-11] MEDS: METOPROLOL TARTRATE 50 MG TAB PO SCH (18:24)
--- NOTE | 2018-03-11 20:06 | Diagnostic Imaging Report ---
A single frontal view of the chest. HISTORY: CHF, pneumonia, shortness of breath, bilateral effusions COMPARISON: Chest radiographs March 11, 2018 at 0356 DISCUSSION: Portable technique, limits sensitivity of the exam. Multiple overlying monitoring leads. Tubes/Lines: None Lungs and pleura: Bibasilar atelectasis. Diffusely increased interstitial markings with more confluent basilar opacities. Bilateral small to moderate pleural effusions. Underlying pathology could be obscured. Heart and mediastinum: The cardiac silhouette and central pulmonary vasculature remain prominent.. Bones: No acute osseous lesion is identified, given this limited exam. Other: Metallic surgical clips project at the proximal right upper extremity. IMPRESSION: 1. Bilateral pleural effusions with adjacent atelectasis. 2. Findings compatible with volume overload resulting in central pulmonary vascular congestion and moderate pulmonary edema. 3. Superimposed pneumonia may be a consideration in the appropriate setting. Signed by: Dr. Delbert De La Torre D.O., M.M.M. on 03/11/2018 8:03 PM
[2018-03-11] MEDS: PRAVASTATIN 20 MG TAB PO SCH (20:34)
[2018-03-11] MEDS: BENZONATATE 100 MG CAP PO PRN (20:34)
[2018-03-11] MEDS: ALPRAZOLAM 0.25 MG TAB PO PRN (20:34)
[2018-03-11] MEDS: ACETAMINOPHEN 325 MG TAB PO PRN (20:51)
[2018-03-12] VITALS (8 sets, daily range): BP systolic 92–115; BP diastolic 44–58
[2018-03-12] MEDS: ALBUTEROL/IPRATROPIUM 3 ML NEB NEB SCH ×4 (00:35→19:35)
[2018-03-12] MEDS: ONDANSETRON HCL 4 MG ORAL DISINTEGRATING TAB PO SCH ×3 (05:43→18:00)
[2018-03-12] MEDS: INSULIN REGULAR, HUMAN 100 UNIT/1 ML 3ML VIAL SQ SCH ×4 (07:30→20:24)
[2018-03-12] MEDS: LORATADINE 10 MG TAB PO SCH (08:48)
[2018-03-12] MEDS: CEFEPIME HCL 1 GM VIAL IV SCH (08:48)
[2018-03-12] MEDS: FLUTICASONE PROPIONATE NASAL SPRAY NS SCH (08:48)
[2018-03-12] MEDS: METOPROLOL TARTRATE 50 MG TAB PO SCH (08:48)
[2018-03-12] MEDS: DOCUSATE SODIUM 100 MG CAP PO SCH ×2 (08:48→20:24)
[2018-03-12] MEDS: SEVELAMER CARBONATE 800 MG TAB PO SCH ×3 (08:48→17:27)
[2018-03-12] MEDS: PANTOPRAZOLE SOD 40 MG TABEC PO SCH (08:48)
[2018-03-12] MEDS: SENNOSIDES 8.6 MG TAB PO SCH (08:49)
[2018-03-12] MEDS: ISOSORBIDE DINITRATE 20 MG TAB PO SCH (17:27)
[2018-03-12] MEDS: CARBIDOPA/LEVODOPA 10/100 TAB PO SCH (17:27)
[2018-03-12] MEDS: AMIODARONE HCL 200 MG TAB PO SCH (17:27)
[2018-03-12] MEDS: PRAVASTATIN 20 MG TAB PO SCH (20:24)
[2018-03-12] MEDS: ALPRAZOLAM 0.25 MG TAB PO PRN (20:24)
[2018-03-12] MEDS: BENZONATATE 100 MG CAP PO PRN (20:24)
--- NOTE | 2018-03-12 23:40 | Progress Note ---
DATE: March 12, 2018 TIME OF SERVICE: 7:15 a.m. SUBJECTIVE: Overnight, no events. REVIEW OF SYSTEMS: Denies any dizziness, chest pain. Denies any nausea, vomiting, diarrhea. Denies any headaches, vision changes. PHYSICAL EXAMINATION VITAL SIGNS: Reviewed. GENERAL: A tired appearing woman, resting in bed. HEENT: Anicteric. CARDIOVASCULAR: Normal S1, S2. LUNGS: She has decreased breath sounds bilaterally, more at the bases. ABDOMEN: Soft, nontender, nondistended. EXTREMITIES: She has trace leg edema. SKIN: Dry. PSYCHIATRIC: Flat affect. MUSCULOSKELETAL: Hemodialysis access. LABS: Reviewed. MEDICATIONS: Reviewed. ASSESSMENT: An 83-year-old woman. 1. Bilateral pleural effusions/pulmonary edema, status post right thoracentesis. 2. Acute exacerbation of systolic congestive heart failure, left ventricular ejection fraction of 35% to 40%. 3. Coronary artery disease with history of bypass. 4. Paroxysmal atrial fibrillation. 5. Hypertension. 6. Hyperlipidemia. 7. Chronic angina. 8. Normocytic anemia. 9. Parkinson disease. 10. Asymptomatic urinary tract infection. 11. Small right pneumothorax post thoracentesis. PLAN 1. The patient wants pleurodesis at this time. Pulmonary service is on board and will come to a conclusion. 2. 90 mL of fluid was removed from the right lung. 3. Continue to limit salt and water. 4. Discharge planning. Job#: [id number] VIKTOR
[2018-03-13] VITALS: BP 116/59
[2018-03-13 04:00] VITALS: BP 103/56
[2018-03-13] MEDS: ONDANSETRON HCL 4 MG ORAL DISINTEGRATING TAB PO SCH ×2 (05:42)
[2018-03-13] MEDS: ALBUTEROL/IPRATROPIUM 3 ML NEB NEB SCH ×2 (07:00→13:00)
[2018-03-13] MEDS: INSULIN REGULAR, HUMAN 100 UNIT/1 ML 3ML VIAL SQ SCH (07:30)
[2018-03-13] MEDS: ISOSORBIDE DINITRATE 20 MG TAB PO SCH (08:00)
[2018-03-13] MEDS: SEVELAMER CARBONATE 800 MG TAB PO SCH ×2 (08:00→12:00)
[2018-03-13] MEDS: LORATADINE 10 MG TAB PO SCH (08:00)
[2018-03-13] MEDS: DOCUSATE SODIUM 100 MG CAP PO SCH (08:00)
[2018-03-13] MEDS: METOPROLOL TARTRATE 50 MG TAB PO SCH (08:00)
[2018-03-13] MEDS: SENNOSIDES 8.6 MG TAB PO SCH (08:00)
[2018-03-13] MEDS: AMIODARONE HCL 200 MG TAB PO SCH (08:00)
[2018-03-13] MEDS: CEFEPIME HCL 1 GM VIAL IV SCH (08:00)
[2018-03-13] MEDS: CARBIDOPA/LEVODOPA 10/100 TAB PO SCH (08:00)
[2018-03-13] MEDS: FLUTICASONE PROPIONATE NASAL SPRAY NS SCH (08:00)
[2018-03-13 08:15] VITALS: BP 101/48
[2018-03-13] MEDS: PANTOPRAZOLE SOD 40 MG TABEC PO SCH (08:30)
[2018-03-13 12:00] VITALS: BP 123/63
[2018-03-13] MEDS: ALPRAZOLAM 0.25 MG TAB PO PRN (12:08)
[2018-03-13] MEDS ORDERED: ONDANSETRON HCL 4 MG ORAL DISINTEGRATING TAB PO PRN (12:15)
--- NOTE | 2018-03-13 22:40 | Discharge Summary ---
PRINCIPAL DIAGNOSES 1. Bilateral pleural effusions and pulmonary edema, status post right thoracentesis with 900 mL removed. 2. Acute exacerbation of systolic congestive heart failure with left ventricular ejection fraction of 35% to 40%. 3. Coronary artery disease with history of bypass. 4. Paroxysmal atrial fibrillation. 5. Small right pneumothorax following thoracentesis. 6. Asymptomatic urinary tract infection, which was not treated. SECONDARY DIAGNOSIS: Parkinson disease. CHIEF COMPLAINT: Shortness of breath. HISTORY OF PRESENT ILLNESS: This is an 83-year-old woman with shortness of breath. Please refer to the H and P in the chart for further details. HOSPITAL COURSE: The patient had bilateral pleural effusions and pulmonary edema. She underwent thoracentesis on the right, and 900 mL were removed. She also had acute exacerbation of systolic congestive heart failure with left ventricular ejection fraction of 35% to 40%. Recommended for pleurodesis; however, it was not able to be obtained at this facility. Therefore, the patient will be transitioned back to the [facility] facility and transitioned to [employer] for elective procedure for pleurodesis to prevent recurrence of the pleural effusions. She is doing well and currently appropriate for discharge. DISCHARGE MEDICATIONS: Per electronic medical record. FOLLOWUP 1. With primary care doctor in 1 week. 2. Follow up with my service in 2 weeks. CONDITION ON DISCHARGE: Stable and improving. DISCHARGE LOCATION: Home. FADY JONES MD Job#: [id number]
== END 2018-03-13 14:34 | DRG 291 ==
LOC: ER 11:22 → ERHOLD 15:23 → MED/SURG3 18:56
PROVIDERS: ADMIT Internal Medicine; ATTEND Internal Medicine
PROC: 5A1D70Z Performance of Urinary Filtration, Intermittent, Less than 6 Hours Per Day (ICD-10-PCS; 2018-03-07)
PROC: 5A1D70Z Performance of Urinary Filtration, Intermittent, Less than 6 Hours Per Day (ICD-10-PCS; principal; 2018-03-08)
PROC: 5A1D70Z Performance of Urinary Filtration, Intermittent, Less than 6 Hours Per Day (ICD-10-PCS; 2018-03-11)
PROC: 5A1D70Z Performance of Urinary Filtration, Intermittent, Less than 6 Hours Per Day (ICD-10-PCS; 2018-03-12)
PROC: 5A1D70Z Performance of Urinary Filtration, Intermittent, Less than 6 Hours Per Day (ICD-10-PCS; 2018-03-13)
DX: I13.2 Hypertensive heart and chronic kidney disease with heart failure and with stage 5 chronic kidney disease, or end stage renal disease (principal); I50.21 Acute systolic (congestive) heart failure; N18.6 End stage renal disease; J18.9 Pneumonia, unspecified organism; J90 Pleural effusion, not elsewhere classified; E11.22 Type 2 diabetes mellitus with diabetic chronic kidney disease; Z99.2 Dependence on renal dialysis; I48.0 Paroxysmal atrial fibrillation
CPT/HCPCS: 32555; 36415; 71045; 71046; 74470; 76604; 80048; 80053; 80061; 80162; 81001; 82550; 82553; 82948; 83615; 83880; 84157; 84478; 84484; 85025; 85610; 85730; 86704; 86706; 87040; 87070; 87205; 87340; 89051; 90962; 93005; 94640; 99284; J0692; J7030